=== PATIENT | male | born 1985 | race Caucasian/White ===

== ENCOUNTER 2019-02-11 08:52 | Emergency (ER) | payer SELFPAY ==
[~2019-02-11] VITALS: Ht 193 cm; Wt 105.9 kg
[2019-02-11 08:54] VITALS: Ht 193 cm; Wt 105.9 kg
[2019-02-11] MEDS ORDERED: TORADOL10 MG PO (09:13)
[2019-02-11 09:22] VITALS: BP 136/74
== END 2019-02-11 09:29 | disposition home or self-care (01) ==
LOC: D.ER 08:52
DX: S66.822D Laceration of other specified muscles, fascia and tendons at wrist and hand level, left hand, subsequent encounter (principal); X58.XXXD Exposure to other specified factors, subsequent encounter